=== PATIENT | female | born 1940 | race Caucasian/White ===

== ENCOUNTER → 2023-07-14 12:07 | Outpatient (CLI) | payer MEDICARE, OTHER, SELFPAY ==
--- NOTE | 2023-07-14 | DI.ECHO.S_ITS ---
[facility] +---------+ : : [address] : [address] : : : : [id number] : : : : Phone: [phone]---------+ Echocardiogram Report + + :Name: DAVID GRIGGS Study Date: 07/14/2023 Height: 65 in : :[facility] ReadingLocation: Weight: 98 lb : : Gender: Female BSA: 1.5 m2 : :: 1940 Age: 82 yrs BP: 163/88 mmHg: :Reason For Study: ATRIAL FIBRILLATION : :Ordering Physician: Dyana FABIANformed By: Candis Cole : :Referring: MAILE FABIAN : + + Interpretation Summary 1) Normal left ventricular thickness, size, wall motion, and systolic function (EF 60-65%). 2) Normal right ventricular size and function. 3) There is mild aortic regurgitation. 4) There is mild to moderate tricuspid regurgitation. 5) Compared to the Echo done 09/18/2020, LVEF has improved from 50-55% to 60- 65% on this study. Procedure: A two-dimensional transthoracic echocardiogram with color flow and Doppler was performed. The study quality was technically adequate. Comparison is made with the echocardiogram of 09/18/2020. The patient was in sinus bradycardia with heart rates between 48-52 bpm during the exam. Left Ventricle: The left ventricle is normal in size and wall thickness. The ejection fraction is estimated to be 60-65%. Left ventricular systolic function appears normal without focal wall motion abnormalities. Diastolic parameters suggest a relaxation abnormality of the left ventricle, consistent with probable normal filling pressures. Right Ventricle: The right ventricle is normal in size and function. Atria: The left atrium is moderately dilated. Right atrial size is normal. There is no Doppler evidence for an interatrial shunt. Mitral Valve: The mitral valve leaflets appear mildly thickened, but open well. There is mild mitral regurgitation. Aortic Valve: The aortic valve is trileaflet. The aortic valve opens well. There is no aortic valve stenosis. There is mild aortic regurgitation. Tricuspid Valve: The tricuspid valve leaflets are thin and pliable. There is mild to moderate tricuspid regurgitation. The right ventricular systolic pressure is estimated to be at least 28 mmHg based on an estimated right atrial pressure of 3 mm Hg. Pulmonic Valve: The pulmonic valve leaflets are thin and pliable; valve motion is normal. There is trace pulmonic regurgitation. Great Vessels: The aortic root is normal size. The dimensions of the ascending aorta are normal. The IVC is of normal diameter and collapses greater than 50% with a sniff. This suggests a low right atrial pressure of 3 mm Hg. Pericardium/ Pleura There is no pericardial effusion. There is no pleural effusion. MMode/2D Measurements & Calculations LVIDd: 4.5 cm LVOT diam: 2.0 cm LVIDs: 2.9 cm Ao root diam: 3.2 cm FS: 35.2 % asc Aorta Diam: 3.2 cm IVSd: 0.72 cm Ao Arch Diam (Prox Trans): 2.6 cm LVPWd: 0.76 cm LV mobley. diameter/BSA (cm/m^2): 3.1 LV sys. diameter/BSA (cm/m^2): 2.0 LA A2 area: 19.3 cm2 RA long axis: 4.8 cm LA A4 area: 16.1 cm2 RA area: 14.4 cm2 LA length (vol): 4.7 cm RA vol: 37.2 ml LA vol: 55.8 ml RA : 25.4 ml/m2 LA vol index: 38.2 ml/m2 IVC diam: 1.2 cm RVD1 (basal): 3.2 cm RVD2 (mid): 2.4 cm TAPSE: 1.9 cm Doppler Measurements & Calculations Ao V2 max: 115.4 cm/sec LVOT Max Warren: 95.2 cm/sec Ao V2 mean: 85.0 cm/sec LV V1 max P.6 mmHg Ao max P.3 mmHg LV V1 VTI: 23.8 cm Ao mean P.1 mmHg LIANG(I,D): 2.6 cm2 Ao V2 VTI: 29.1 cm LIANG(V,D): 2.6 cm2 sev ratio: 0.82 LIANG indexed to BSA (cm^2/m^2): 1.8 AI P1/2t: 864.1 msec AI dec slope: 117.3 cm/sec2 MV E max warren: 91.7 cm/sec TR max warren: 252.2 cm/sec MV A max warren: 33.4 cm/sec TR max P.5 mmHg MV E/A: 2.7 PA V2 max: 68.1 cm/sec Med Peak E' Warren: 9.6 cm/sec PA V2 mean: 52.0 cm/sec E/E' med: 9.6 PA mean P.1 mmHg Lat Peak E' Warren: 8.7 cm/sec PA pr(Accel): 39.6 mmHg E/E' lat: 10.5 E/e' average: 10.1 MV dec time: 0.27 sec SV(LVOT): 75.7 ml Reading Physician:02:36 PM
== END ==
PROVIDERS: PCP Internal Medicine; Referring Provider Internal Medicine Cardiovascular Disease; Visit Provider Internal Medicine Cardiovascular Disease
DX: I48.0 Paroxysmal atrial fibrillation (principal); I08.3 Combined rheumatic disorders of mitral, aortic and tricuspid valves
CPT/HCPCS: 93306